=== PATIENT | female | born 1980 | race Caucasian/White ===

== ENCOUNTER → 2016-09-19 | Outpatient (CLI) | payer OTHER ==
--- NOTE | 2016-09-19 17:12 | MR ---
EXAMINATION TYPE: MR cervical spine wo con DATE OF EXAM: 09/19/2016 4:45 PM COMPARISON: NONE HISTORY: Neck pain, headaches, BUE radiculopathy TECHNIQUE: Multiplanar, multisequence images of the cervical spine were acquired. C2-C3: No evidence for degenerative disc disease. No disc bulge/herniation or protrusion. No Canal stenosis. Foramina are patent bilaterally. C3-C4: No evidence for degenerative disc disease. No disc herniation or protrusion. There is mild c entral disc bulging. No Canal stenosis. Foramina are patent bilaterally. C4-C5: Mild disc desiccation. There is central and right paracentral disc bulging or small protrusion . There is mild effacement of the thecal sac. Mild uncovertebral joint hypertrophy bilaterally. Neura l foramina remain patent. C5-C6: Central broad-based disc protrusion or small herniation results in AP canal stenosis and abuts the anterior margin of the spinal cord. Uncovertebral joint hypertrophy greater on the left with mil d left foraminal encroachment C6-C7: No disc herniation or canal stenosis. No foraminal encroachment. Mild uncovertebral joint hype rtrophy C7-T1: No evidence for degenerative disc disease. No disc bulge/herniation or protrusion. No Canal stenosis. Foramina are patent bilaterally. Cervical segments are intact. There is normal alignment. Cervical spinal cord is of normal signal. Craniovertebral junction relationships are within normal limits. There is reversal the normal cervic al lordosis. IMPRESSION: 1. Broad-based central disc herniation C5-C6 with AP canal stenosis. Significant thecal sac compressi on and disc herniation encroaches upon the anterior margin of the spinal cord. Mild left foraminal en croachment. 2. Degenerative disc disease and broad-based disc protrusion greater paracentrally to the right with mild AP canal stenosis. No spinal cord contact. Neural foramina remain patent
== END | disposition home or self-care (01) ==
LOC: RADMRIMAIN 16:01
PROVIDERS: ATTEND Internal Medicine Rheumatology
DX: M50.222 Other cervical disc displacement at C5-C6 level (principal); M48.02 Spinal stenosis, cervical region; M54.12 Radiculopathy, cervical region
CPT/HCPCS: 72141

== ENCOUNTER → 2016-09-23 | Outpatient (CLI) | payer OTHER ==
--- NOTE | 2016-09-23 10:09 | MR ---
EXAMINATION TYPE: MR sacroiliac joints wo con DATE OF EXAM: 09/23/2016 9:37 AM COMPARISON: NONE HISTORY: sacroilitis Standard multiplanar, multisequence MRI departmental protocol Multiplanar, multisequence images of the SI joints were acquired. Diffusion weighted imaging was perf ormed. FINDINGS: There is a disc herniation L5-S1 centrally. SI joints appear symmetric. No abnormal signal to suggest fatty replacement or edema. There are no er osive changes. No abnormal fluid collection pelvis. Right-sided dominant ovarian follicles are seen. IMPRESSION: 1. Central disc herniation L5-S1 with thecal sac compression. The L4-5 level is only partially includ ed with is also a suspicion for central disc herniation at L4-5 as well. Correlate with lumbar MRI. 2. No evidence of sacroiliitis.
== END | disposition home or self-care (01) ==
LOC: RADMRIMAIN 08:50
PROVIDERS: ATTEND Internal Medicine Rheumatology
DX: M51.27 Other intervertebral disc displacement, lumbosacral region (principal)
CPT/HCPCS: 72195

== ENCOUNTER → 2016-11-05 | Outpatient (CLI) | payer OTHER | END | disposition home or self-care (01) | LOC: RADMRIMAIN 18:43 | PROVIDERS: ATTEND Otolaryngology | DX: Z53.9 Procedure and treatment not carried out, unspecified reason (principal) ==

== ENCOUNTER → 2016-12-23 | Outpatient (CLI) | payer OTHER | END | disposition home or self-care (01) | LOC: RADMRIMAIN 20:35 | PROVIDERS: ATTEND Otolaryngology | DX: Z53.9 Procedure and treatment not carried out, unspecified reason (principal) ==

== ENCOUNTER 2017-10-28 17:13 | Emergency (ER) | payer OTHER ==
[2017-10-28 17:45] VITALS: RESP 18
[2017-10-28] MEDS ORDERED: FAMOTIDINE 20 MG TAB PO STA (18:18)
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
[2017-10-28] MEDS: DEXAMETHASONE SOD PHOSPHATE 10 MG/ML 1 ML VIAL IM STA ×2 (18:42→18:44)
[2017-10-28 19:19] VITALS: BP 114/62; PULSE 57; TEMP 97.1
== END 2017-10-28 19:44 | disposition home or self-care (01) ==
LOC: EC 17:13
DX: A59.01 Trichomonal vulvovaginitis (principal); J45.909 Unspecified asthma, uncomplicated; Z86.73 Personal history of transient ischemic attack (TIA), and cerebral infarction without residual deficits; Z86.14 Personal history of Methicillin resistant Staphylococcus aureus infection; Z87.891 Personal history of nicotine dependence; Z79.899 Other long term (current) drug therapy; Z91.040 Latex allergy status; Z88.1 Allergy status to other antibiotic agents; Z88.2 Allergy status to sulfonamides; Z88.8 Allergy status to other drugs, medicaments and biological substances; Z91.012 Allergy to eggs; Z91.011 Allergy to milk products
CPT/HCPCS: 99283; 96372; J1100

== ENCOUNTER 2018-08-12 03:15 | Emergency (ER) | payer OTHER ==
[2018-08-12 03:27] VITALS: RESP 19
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
[2018-08-12] MEDS: predniSONE 20 MG TAB PO STA (04:45)
[2018-08-12 04:50] VITALS: BP 104/85; PULSE 65; TEMP 97
== END 2018-08-12 04:46 | disposition home or self-care (01) ==
LOC: EC 03:15
DX: J32.9 Chronic sinusitis, unspecified (principal); H57.12 Ocular pain, left eye; R51 Headache; J45.909 Unspecified asthma, uncomplicated; F90.9 Attention-deficit hyperactivity disorder, unspecified type; F32.9 Major depressive disorder, single episode, unspecified; F41.9 Anxiety disorder, unspecified; Z86.14 Personal history of Methicillin resistant Staphylococcus aureus infection; Z87.891 Personal history of nicotine dependence; Z88.1 Allergy status to other antibiotic agents; Z88.2 Allergy status to sulfonamides; Z91.011 Allergy to milk products; Z91.040 Latex allergy status; Z91.012 Allergy to eggs; Z88.8 Allergy status to other drugs, medicaments and biological substances; Z86.73 Personal history of transient ischemic attack (TIA), and cerebral infarction without residual deficits
CPT/HCPCS: 99283; J7512

== ENCOUNTER 2018-09-06 00:51 | Emergency (ER) | payer OTHER ==
[2018-09-06 01:04] VITALS: PULSE 65; TEMP 98
[2018-09-06] MEDS ORDERED: DEXTROSE 5% IN WATER 250 ML with AMIODARONE 300 MG IV ONE (01:47)
[2018-09-06] MEDS ORDERED: DEXTROSE 5% IN WATER 100 ML with AMIODARONE 150 MG IV ONE (01:47)
[2018-09-06] MEDS ORDERED: AMIODARONE 360 MG in DEXTROSE 5% IN WATER 200 ML IV ONE ×2 (01:48)
[2018-09-06 01:49] LABS: Basophils # (A) 0.1 k/uL (0-0.2); Basophils % (A) 1 %; Eosinophils # (A) 0.3 k/uL (0-0.7); Eosinophils % (A) 3 %; HCT 40.9 % (34.0-46.0); HGB 13.3 gm/dL (11.4-16.0); Lymphocytes # (A) 3.6 k/uL (1.0-4.8); Lymphocytes % (A) 36 %; MCH 27.4 pg (25.0-35.0); MCHC 32.6 g/dL (31.0-37.0); MCV 84.3 fL (80.0-100.0); Mean Platelet Volume 7.2; Monocytes # (A) 0.5 k/uL (0-1.0); Monocytes % (A) 5 %; Neutrophils # (A) 5.4 k/uL (1.3-7.7); Neutrophils % (A) 54 %; Platelet Count 308 k/uL (150-450); RBC 4.85 m/uL (3.80-5.40); RDW 12.9 % (11.5-15.5)
[2018-09-06 01:57] LABS: INR 0.9 (<1.2); Partial Thromboplastin Time 26.9 sec (22.0-30.0); Prothrombin Time 9.9 sec (9.0-12.0)
[2018-09-06 01:59] LABS: ALT 31 U/L (9-52); AST 23 U/L (14-36); Alkaline Phosphatase 65 U/L (38-126); Anion Gap 9 mmol/L; Blood Urea Nitrogen 12 mg/dL (7-17); Calcium 9.2 mg/dL (8.4-10.2); Carbon Dioxide 21 mmol/L (22-30); Chloride 108 mmol/L (98-107); Glucose 102 mg/dL (74-99); Magnesium 1.9 mg/dL (1.6-2.3); Potassium 3.9 mmol/L (3.5-5.1); Sodium 138 mmol/L (137-145); Total Protein 7.1 g/dL (6.3-8.2)
[2018-09-06] MEDS ORDERED: AMIODARONE 300 MG in DEXTROSE 5% IN WATER 250 ML IV SCH ×2 (02:00)
[2018-09-06 02:15] LABS: HCG,Quantitative Serum <2.4 mIU/mL
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
--- NOTE | 2018-09-06 03:22 | XR ---
EXAM: XR Chest, 2 Views CLINICAL HISTORY: ITS.REASON XR Reason: Chest Pain TECHNIQUE: Frontal and lateral views of the chest. COMPARISON: Chest x-ray dated 10/11/2015. FINDINGS: Lungs: Unremarkable. The lungs are clear. Pleural space: Unremarkable. No pneumothorax. Heart: Unremarkable. No cardiomegaly. Mediastinum: Unremarkable. Bones/joints: Unremarkable. IMPRESSION: Normal chest x-rays.
--- NOTE | 2018-09-06 03:36 | CT ---
EXAM: CT Angiography Chest Without And With Intravenous Contrast CLINICAL HISTORY: ITS.REASON CT Reason: Pain TECHNIQUE: Axial computed tomographic angiography images of the chest without and with intravenous contrast using pulmonary embolism protocol. CTDI is 10. 2 mGy and DLP is 79.1 mGy-cm. This CT exam was performed using one or more of the following dose reduction techniques: automated exposure control, adjustment of the mA and/or kV according to patient size, and/or use of iterative reconstruction technique. MIP reconstructed images were created and reviewed. COMPARISON: No relevant prior studies available. FINDINGS: Pulmonary arteries: Unremarkable. No evidence of pulmonary embolism. Aorta: No acute findings. No thoracic aortic aneurysm. Lungs: Unremarkable. No mass. No consolidation. Pleural space: Unremarkable. No significant effusion. No pneumothorax. Heart: Unremarkable. No cardiomegaly. No significant pericardial effusion. No evidence of RV dysfunction. Bones/joints: No acute fracture. No dislocation. Soft tissues: Unremarkable. Lymph nodes: Unremarkable. No enlarged lymph nodes. IMPRESSION: Normal chest CTA. No evidence of pulmonary embolism. EXAM: CT Angiography Abdomen and Pelvis Without And With Intravenous Contrast CLINICAL HISTORY: ITS.REASON CT Reason: Pain TECHNIQUE: Axial computed tomographic angiography images of the abdomen and pelvis without and with intravenous contrast. CTDI is 10.8 mGy and DLP is 45.9 mGy-cm. This CT exam was performed using one or more of the following dose reduction techniques: automated exposure control, adjustment of the mA and/or kV according to patient size, and/or use of iterative reconstruction technique. MIP reconstructed images were created and reviewed. COMPARISON: No relevant prior studies available. FINDINGS: VASCULATURE: Aorta: No acute findings. No abdominal aortic aneurysm. No dissection. Celiac trunk and mesenteric arteries: No acute findings. No occlusion or significant stenosis. Renal arteries: No acute findings. No occlusion or significant stenosis. Iliac arteries: No acute findings. No occlusion or significant stenosis. Lung bases: Unremarkable. No mass. No consolidation. ABDOMEN: Liver: Unremarkable. No mass. Gallbladder and bile ducts: Prior cholecystectomy. No ductal dilation. Pancreas: Unremarkable. No ductal dilation. No mass. Spleen: Unremarkable. No splenomegaly. Adrenals: Unremarkable. No mass. Kidneys and ureters: Unremarkable. No obstructing stones. No hydronephrosis. No solid mass. Stomach and bowel: Unremarkable. No obstruction. No mucosal thickening. PELVIS: Appendix: No findings to suggest acute appendicitis. Bladder: Unremarkable. No stones. No mass. Reproductive: IUD in the uterus. ABDOMEN and PELVIS: Intraperitoneal space: Unremarkable. No significant fluid collection. No free air. Bones/joints: No acute fracture. No dislocation. Soft tissues: Unremarkable. Lymph nodes: Unremarkable. No enlarged lymph nodes. IMPRESSION: No acute findings.
[2018-09-06 04:08] VITALS: BP 114/70; RESP 16
== END 2018-09-06 04:06 | disposition home or self-care (01) ==
LOC: EC 00:51
DX: M94.0 Chondrocostal junction syndrome [Tietze] (principal); J45.909 Unspecified asthma, uncomplicated; F90.9 Attention-deficit hyperactivity disorder, unspecified type; F32.9 Major depressive disorder, single episode, unspecified; F41.9 Anxiety disorder, unspecified; Z86.73 Personal history of transient ischemic attack (TIA), and cerebral infarction without residual deficits; Z87.891 Personal history of nicotine dependence; Z86.14 Personal history of Methicillin resistant Staphylococcus aureus infection; Z79.899 Other long term (current) drug therapy; Z88.1 Allergy status to other antibiotic agents; Z91.012 Allergy to eggs; Z91.040 Latex allergy status; Z88.2 Allergy status to sulfonamides; Z91.011 Allergy to milk products; Z88.8 Allergy status to other drugs, medicaments and biological substances; Z90.49 Acquired absence of other specified parts of digestive tract
CPT/HCPCS: 36415; 93005; 80053; 83735; 84484; 85025; 85610; 85730; 84702; 71046; 71275; 74174; 99285; Q9967

== ENCOUNTER → 2019-01-19 | Outpatient (CLI) | payer OTHER ==
--- NOTE | 2019-01-20 07:16 | US ---
EXAMINATION TYPE: US transvaginal DATE OF EXAM: 01/19/2019 COMPARISON: NONE CLINICAL HISTORY: R10.2 PELVIC AND PERINEAL PAIN. IUD PLACEMENT TECHNIQUE: . . Transvaginal sonographic images Date of LMP: 01/19/2019 EXAM MEASUREMENTS: Uterus: 7.7 x 3.6 x 5.4 cm Endometrial Stripe: 0.5 cm Right Ovary: 2.4 x 1.9 x 2.7 cm Left Ovary: 2.0 x 1.2 x 2.1 cm 1. Uterus: Anteverted IUD mid line 2. Endometrium: wnl 3. Right Ovary: small follicles 0.7 x 0.9 x 0.8 cm,0.7 x 0.5 x 0.7 cm, physiologic. 4. Left Ovary: wnl 5. Bilateral Adnexa: wnl 6. Posterior cul-de-sac: Trace amount of fluid IMPRESSION: Centrally, appropriately placed intrauterine device spanning the lower and upper uterine segments. Trace amount of free fluid in the pelvis is likely physiologic.
== END | disposition home or self-care (01) ==
LOC: RADUSWWP 15:44
PROVIDERS: ATTEND Family Medicine
DX: R10.2 Pelvic and perineal pain (principal); Z97.5 Presence of (intrauterine) contraceptive device
CPT/HCPCS: 76830

== ENCOUNTER 2019-03-15 02:24 | Emergency (ER) | payer OTHER ==
--- NOTE | 2019-03-15 04:02 | XR ---
EXAM: XR Left Foot Complete, 3 or More Views CLINICAL HISTORY: ITS.REASON XR Reason: Pain TECHNIQUE: Frontal, lateral and oblique views of the left foot. COMPARISON: No relevant prior studies available. FINDINGS: Bones/joints: No acute fracture. No dislocation. Soft tissues: Unremarkable. No radiopaque foreign body. IMPRESSION: No acute osseous findings.
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
[2019-03-15 04:47] VITALS: BP 133/73; PULSE 87; RESP 20; TEMP 97
== END 2019-03-15 04:47 | disposition home or self-care (01) ==
LOC: EC 02:24
DX: S90.852A Superficial foreign body, left foot, initial encounter (principal); J45.909 Unspecified asthma, uncomplicated; Z87.891 Personal history of nicotine dependence; Z88.1 Allergy status to other antibiotic agents; Z88.2 Allergy status to sulfonamides; Z88.8 Allergy status to other drugs, medicaments and biological substances; Z91.012 Allergy to eggs; Z91.018 Allergy to other foods; Z91.040 Latex allergy status; Z79.899 Other long term (current) drug therapy; Z86.14 Personal history of Methicillin resistant Staphylococcus aureus infection; Z86.73 Personal history of transient ischemic attack (TIA), and cerebral infarction without residual deficits; Z53.20 Procedure and treatment not carried out because of patient's decision for unspecified reasons; W22.8XXA Striking against or struck by other objects, initial encounter
CPT/HCPCS: 99283

== ENCOUNTER → 2019-08-04 | Outpatient (CLI) | payer OTHER ==
[2019-08-04 10:29] LABS: Basophils % (A) 0 %; Eosinophils # (A) 0.1 k/uL (0-0.7); Eosinophils % (A) 1 %; HCT 40.6 % (34.0-46.0); HGB 13.1 gm/dL (11.4-16.0); Lymphocytes # (A) 2.3 k/uL (1.0-4.8); Lymphocytes % (A) 34 %; MCH 27.9 pg (25.0-35.0); MCHC 32.2 g/dL (31.0-37.0); MCV 86.6 fL (80.0-100.0); Mean Platelet Volume 8.2; Monocytes # (A) 0.3 k/uL (0-1.0); Monocytes % (A) 4 %; Neutrophils # (A) 4.1 k/uL (1.3-7.7); Neutrophils % (A) 59 %; Platelet Count 300 k/uL (150-450); RBC 4.69 m/uL (3.80-5.40); RDW 12.8 % (11.5-15.5); WBC 6.9 k/uL (3.8-10.6)
[2019-08-04 16:09] LABS: Estradiol 107.2 pg/mL; Follicle Stimulating Hormone 4.9 mIU/mL
[2019-08-04 16:10] LABS: Thyroid Peroxidase Antibodies 31.3 U/mL (0.0-60.0)
[2019-08-04 16:15] LABS: Progesterone 0.4 ng/mL
== END | disposition home or self-care (01) ==
LOC: LABWHC1 09:45
PROVIDERS: ATTEND Midwife
DX: N95.1 Menopausal and female climacteric states (principal)
CPT/HCPCS: 36415; 82670; 83001; 84144; 84403; 84443; 85025; 86376; 86800

== ENCOUNTER 2020-10-18 06:17 | Emergency (ER) | payer OTHER ==
[2020-10-18 06:27] VITALS: RESP 18; TEMP 98.4
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
[2020-10-18 07:42] LABS: Appearance,Urine Cloudy (Clear); Bacteria,Urine Occasional /hpf; Bilirubin,Urine Negative (Negative); Blood,Urine Large (Negative); Color,Urine Light Yellow; Glucose,Urine (UA) Negative (Negative); Ketones,Urine Negative (Negative); Leukocyte Esterase,Urine Large (Negative); Nitrite,Urine Negative (Negative); Protein,Urine Trace (Negative); RBC,Urine 3 /hpf (0-5); Squamous Epithelial Cell,Urine 1 /hpf (0-4); Urobilinogen,Urine <2.0 mg/dL (<2.0); WBC,Urine >182 /hpf (0-5)
[2020-10-18] MEDS ORDERED: cefTRIAXone 1,000 MG VIAL (IM USE) IM STA (07:56)
[2020-10-18 08:36] VITALS: BP 120/76; PULSE 78
== END 2020-10-18 08:34 | disposition home or self-care (01) ==
LOC: EC 06:17
DX: O23.41 Unspecified infection of urinary tract in pregnancy, first trimester (principal); O99.511 Diseases of the respiratory system complicating pregnancy, first trimester; O99.331 Smoking (tobacco) complicating pregnancy, first trimester; O99.341 Other mental disorders complicating pregnancy, first trimester; J45.901 Unspecified asthma with (acute) exacerbation; F41.9 Anxiety disorder, unspecified; F32.9 Major depressive disorder, single episode, unspecified; Z86.73 Personal history of transient ischemic attack (TIA), and cerebral infarction without residual deficits; F17.200 Nicotine dependence, unspecified, uncomplicated
CPT/HCPCS: 81001; 81025; 87086; 99284; 96372; J0696

== ENCOUNTER 2020-11-09 11:24 | Emergency (ER) | payer OTHER ==
[2020-11-09 11:41] VITALS: RESP 16; TEMP 98.3
[2020-11-09 12:54] LABS: Appearance,Urine Cloudy (Clear); Bacteria,Urine Few /hpf; Bilirubin,Urine Negative (Negative); Blood,Urine Large (Negative); Color,Urine Red; Glucose,Urine (UA) Negative (Negative); Ketones,Urine Negative (Negative); Leukocyte Esterase,Urine Moderate (Negative); Nitrite,Urine Negative (Negative); Protein,Urine 2+ (Negative); RBC,Urine 74 /hpf (0-5); Specific Gravity,Urine 1.005 (1.001-1.035); Squamous Epithelial Cell,Urine 1 /hpf (0-4); Urobilinogen,Urine <2.0 mg/dL (<2.0); WBC,Urine 14 /hpf (0-5)
--- NOTE | 2020-11-09 12:59 | US ---
EXAMINATION TYPE: Transabdominal DATE OF EXAM: 11/09/2020 12:47 PM COMPARISON: NONE CLINICAL HISTORY: pain, bleeding. Pt states heavy, bright red vaginal bleeding and cramping that star marco antonio this AM EXAM PERFORMED: Transabdominal (TA) EXAM MEASUREMENTS: GESTATIONAL AGE / DATING Physician Established: (8 weeks/3 days) EDC: 06/18/2021 Dates by LMP: (14 weeks/6 days) EDC: 05/04/2021 Dates by First Scan: No prior here Dates by Current Scan for: (6 weeks/4 days) EDC: 07/01/2021 MATERNAL ANATOMY Uterus: 10.6 x 5.8 x 6.5 cm Right Ovary: 2.5 x 2.1 x 1.8 cm Left Ovary: 2.6 x 2.2 x 2.3 cm Post CDS / Adnexa: wnl Presence of free fluid: No Presence of corpus luteal cyst: No GESTATION / SURVEY CRL: 0.7 (6 weeks/5 days) MSD: 1.5 cm (6 weeks/2 days) Yolk Sac (normal less than 6mm): Not visualized IUP: Demise Date of LMP: Pt unsure, guesses sometime in July Beta HcG (if available): Not available at this time Fluid-filled sac visualized within uterus, appeared abnormal in shape, yolk sac not identified, pos sible abnormal CRL visualized within ges sac, however no hrt tones detected/ Pt states based on previ ous US performed at outside facility she should be over 8 weeks IMPRESSION: There is an intrauterine fluid-filled sac. No definitive yolk sac. Fluid-filled sac is sl ightly irregular. Questionable pole with no definite heart rate. Differential diagnosis would i nclude demise although normal too early to detect also within the differential diagno sis as a mean sac diameter would suggest a 6 week 2 day gestation. Correlate with beta hCG and serial ultrasound and beta hCG as clinically warranted.
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
[2020-11-09 13:34] VITALS: BP 143/74; PULSE 82
== END 2020-11-09 13:34 | disposition home or self-care (01) ==
LOC: EC 11:24
DX: O03.9 Complete or unspecified spontaneous abortion without complication (principal); J45.909 Unspecified asthma, uncomplicated; G45.9 Transient cerebral ischemic attack, unspecified; E05.90 Thyrotoxicosis, unspecified without thyrotoxic crisis or storm; F17.200 Nicotine dependence, unspecified, uncomplicated
CPT/HCPCS: 36415; 76801; 81001; 84702; 86900; 86901; 87086; 99284

== ENCOUNTER 2021-05-03 21:51 | Emergency (ER) | payer OTHER ==
[2021-05-03 22:00] VITALS: PULSE 70
[2021-05-03] MEDS ORDERED: SODIUM CHLORIDE 0.9% 1,000 ML IV STA (22:08)
[2021-05-03] MEDS ORDERED: KETOROLAC 15 MG/ML 1 ML VIAL IVP STA (22:08)
[2021-05-03] MEDS ORDERED: ACETAMINOPHEN TAB 500 MG TAB PO STA (22:08)
[2021-05-03] MEDS ORDERED: DEXAMETHASONE SOD PHOSPHATE 10 MG/ML 1 ML VIAL IVP STA (22:08)
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
[2021-05-03 22:51] LABS: Basophils % (A) 1 %; Eosinophils # (A) 0.1 k/uL (0-0.7); Eosinophils % (A) 2 %; HCT 40.5 % (34.0-46.0); HGB 13.2 gm/dL (11.4-16.0); Lymphocytes # (A) 2.1 k/uL (1.0-4.8); Lymphocytes % (A) 34 %; MCH 28.2 pg (25.0-35.0); MCHC 32.7 g/dL (31.0-37.0); MCV 86.4 fL (80.0-100.0); Mean Platelet Volume 8.4; Monocytes # (A) 0.4 k/uL (0-1.0); Monocytes % (A) 7 %; Neutrophils # (A) 3.5 k/uL (1.3-7.7); Neutrophils % (A) 56 %; Platelet Count 248 k/uL (150-450); RBC 4.69 m/uL (3.80-5.40); RDW 12.7 % (11.5-15.5); WBC 6.3 k/uL (3.8-10.6)
[2021-05-03 23:09] LABS: INR 0.9 (<1.2); Partial Thromboplastin Time 26.5 sec (22.0-30.0); Prothrombin Time 9.9 sec (9.0-12.0)
[2021-05-03 23:13] LABS: ALT 18 U/L (4-34); AST 24 U/L (14-36); African American GFR (CKD) >90 (>60 ml/min/1.73 sqM); Albumin 4.2 g/dL (3.5-5.0); Alkaline Phosphatase 58 U/L (38-126); Anion Gap 10 mmol/L; Blood Urea Nitrogen 15 mg/dL (7-17); C Reactive Protein 1.8 mg/dL (<1.0); Calcium 9.3 mg/dL (8.4-10.2); Carbon Dioxide 21 mmol/L (22-30); Chloride 105 mmol/L (98-107); Glucose 88 mg/dL (74-99); LDH 410 U/L (313-618); Non-African American GFR(CKD) >90 (>60 ml/min/1.73 sqM); Potassium 4.2 mmol/L (3.5-5.1); Sodium 136 mmol/L (137-145); Total Bilirubin 0.5 mg/dL (0.2-1.3); Total Protein 7.1 g/dL (6.3-8.2)
--- NOTE | 2021-05-03 23:36 | CT ---
EXAMINATION TYPE: CT angio chest DATE OF EXAM: 05/03/2021 COMPARISON: None HISTORY: pt has factor 5 clotting disorder. chest pain and covid+ CT DLP: 425.9 mGycm Automated exposure control for dose reduction was used. CONTRAST: Performed with IV Contrast, patient injected with 80 mL of Isovue 370. Images obtained from the thoracic inlet to the diaphragm with IV contrast. There are 3-D post process ed images. There is no mediastinal adenopathy. There are no hilar masses. Thoracic aorta is intact. There is no aneurysm or dissection. The ascending aorta measures 3.2 cm. The lungs are clear of infiltrate. There is no evidence of a pulmonary mass. There is normal contrast opacification of the pulmonary arteries. There are no filling defects. The thoracic spine is intact. Bony thorax is intact. There is no compression fracture. The sternum ap pears normal. IMPRESSION: No evidence of pulmonary embolism. Images obtained from the diaphragm to the floor the pelvis with IV contrast Omnipaque 95 mL. FINDINGS: The lung bases are clear. There is no pleural effusion. Heart size is normal. There is no pericardial effusion. The lungs are clear of infiltrate. There is no mediastinal adenopathy. There are no hilar masses. The bony thorax is intact. Sternum is intact. There is no evidence of filling defect in the pulmonary arteries. Upper abdominal soft tissues are in tact. There are clips from cholecystectomy. IMPRESSION: No evidence of pulmonary embolism. Negative CT scan of the chest.
[2021-05-04] MEDS ORDERED: CASIRIVIMAB (REGN10933) (EUA) 600 MG, IMDEVIMAB (REGN10987) (EUA) 600 MG in SODIUM CHLO... IVPB ONE (01:15)
[2021-05-04] MEDS ORDERED: SODIUM CHLORIDE 0.9% 50 ML IVPB ONE (01:15)
[2021-05-04 02:06] VITALS: RESP 18
[2021-05-04 03:48] VITALS: BP 106/62; TEMP 98.4
== END 2021-05-04 03:47 | disposition home or self-care (01) ==
LOC: EC 21:51
DX: U07.1 COVID-19 (principal); R07.89 Other chest pain; J45.909 Unspecified asthma, uncomplicated; E07.9 Disorder of thyroid, unspecified; F41.9 Anxiety disorder, unspecified; F32.9 Major depressive disorder, single episode, unspecified; F90.9 Attention-deficit hyperactivity disorder, unspecified type; Z91.040 Latex allergy status; Z88.2 Allergy status to sulfonamides; Z88.1 Allergy status to other antibiotic agents; Z86.73 Personal history of transient ischemic attack (TIA), and cerebral infarction without residual deficits; Z90.49 Acquired absence of other specified parts of digestive tract; Z87.891 Personal history of nicotine dependence; Z79.899 Other long term (current) drug therapy
CPT/HCPCS: 99285; 96365; 96375 ×2; 96361 ×5; 36415; 93005; 85379; 80053; 82728; 83605; 83615; 83735; 85025; 85610; 85730; 86140; 71275; J1100; J1885; Q9967

== ENCOUNTER → 2022-03-30 | Outpatient (CLI) | payer OTHER ==
[2022-03-30 16:31] LABS: Potassium 4.5 mmol/L (3.5-5.5)
== END | disposition home or self-care (01) ==
LOC: LABWHC1 11:55
PROVIDERS: ATTEND Dermatology MOHS-Micrographic Surgery
DX: L70.8 Other acne (principal); E55.9 Vitamin D deficiency, unspecified
CPT/HCPCS: 36415; 82306; 84132

== ENCOUNTER 2023-06-14 14:44 | Emergency (ER) | payer OTHER ==
[2023-06-14 14:49] VITALS: RESP 18; TEMP 98.4
--- NOTE | 2023-06-14 16:24 | XR ---
EXAMINATION TYPE: XR chest 2V DATE OF EXAM: 06/14/2023 COMPARISON: 09/06/2018 INDICATION: Cough TECHNIQUE: Frontal and lateral views of the chest are obtained. FINDINGS: The heart size is normal. The pulmonary vasculature is normal. The lungs are clear. IMPRESSION: 1. No acute pulmonary process.
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
[2023-06-14 17:36] LABS: Basophils # (A) 0.1 k/uL (0-0.2); Basophils % (A) 1 %; Eosinophils # (A) 0.3 k/uL (0-0.7); Eosinophils % (A) 3 %; HCT 40.4 % (34.0-46.0); Lymphocytes # (A) 3.3 k/uL (1.0-4.8); Lymphocytes % (A) 35 %; MCH 27.5 pg (25.0-35.0); MCHC 32.3 g/dL (31.0-37.0); MCV 85.1 fL (80.0-100.0); Mean Platelet Volume 8.4; Monocytes # (A) 0.5 k/uL (0-1.0); Monocytes % (A) 5 %; Neutrophils # (A) 5.2 k/uL (1.3-7.7); Neutrophils % (A) 55 %; Platelet Count 315 k/uL (150-450); RBC 4.75 m/uL (3.80-5.40); RDW 13.5 % (11.5-15.5); WBC 9.4 k/uL (3.8-10.6)
[2023-06-14 17:56] LABS: ALT 19 U/L (4-34); AST 26 U/L (14-36); African American GFR (CKD) >90 (>60 ml/min/1.73 sqM); Albumin 4.3 g/dL (3.5-5.0); Alkaline Phosphatase 58 U/L (38-126); Anion Gap 10 mmol/L; Blood Urea Nitrogen 11 mg/dL (7-17); Calcium 9.8 mg/dL (8.4-10.2); Carbon Dioxide 24 mmol/L (22-30); Chloride 105 mmol/L (98-107); Glucose 83 mg/dL (74-99); Non-African American GFR(CKD) >90 (>60 ml/min/1.73 sqM); Potassium 4.5 mmol/L (3.5-5.1); Sodium 139 mmol/L (137-145); Total Bilirubin 1.2 mg/dL (0.2-1.3); Total Protein 7.2 g/dL (6.3-8.2)
[2023-06-14 17:57] LABS: Partial Thromboplastin Time 27.9 sec (22.0-30.0); Prothrombin Time 11.2 sec (10.0-12.5)
[2023-06-14 18:45] VITALS: BP 134/89; PULSE 55
== END 2023-06-14 18:34 | disposition home or self-care (01) ==
LOC: EC 14:44
DX: H92.02 Otalgia, left ear (principal); R00.1 Bradycardia, unspecified; J45.909 Unspecified asthma, uncomplicated; Z86.59 Personal history of other mental and behavioral disorders; Z87.891 Personal history of nicotine dependence; Z79.899 Other long term (current) drug therapy; Z91.040 Latex allergy status; Z91.018 Allergy to other foods; Z91.011 Allergy to milk products; Z88.8 Allergy status to other drugs, medicaments and biological substances; Z88.1 Allergy status to other antibiotic agents
CPT/HCPCS: 36415; 71046; 80053; 85025; 85379; 85610; 85730; 93005; 99284